=== PATIENT | female | born 2000 | race American Indian/Alaskan Native ===

== ENCOUNTER 2022-01-18 14:50 | Emergency (ER) | payer MEDICAID ==
[2022-01-19] MEDS: HYDROcodone/ACETAMINOPHEN 5-325 MG TAB PO STA (02:04)
--- NOTE | 2022-01-19 02:20 | Emergency Department Report ---
ED General Adult HPI - General Chief complaint: Chest Pain Stated complaint: CP/PRESSURE Time Seen by Provider: 01/19/22 01:36 Source: patient Mode of arrival: Ambulatory Limitations: No Limitations - History of Present Illness Initial comments: 21-year-old female asthma department complaining of 1 week history of pain to her chest just underneath her breasts and a pressure-like fashion worse with palpation and range of motion and deep breath. She reports no coughing, no congestion, no hemoptysis hematemesis hematochezia, no fever, chills, sweats but occasional shortness of breath. -: Gradual Severity scale (0 -10): 8 Quality: aching, dull Consistency: constant Improves with: none Worsens with: none Associated Symptoms: chest pain, shortness of breath. denies: headaches, loss of appetite, malaise, nausea/vomiting, rash, syncope, weakness - Related Data Previous Rx's Medication Instructions Recorded Last Taken Type Ketorolac [Toradol] 10 mg PO Q6H PRN #15 tablet 01/19/22 Unknown Rx methOCARBAMOL [Robaxin TAB] 750 mg PO Q8H PRN #14 tablet 01/19/22 Unknown Rx Allergies Allergy/AdvReac Type Severity Reaction Status Date / Time No Known Allergies Allergy Unverified 01/18/22 16:09 ED Review of Systems ROS: Stated complaint: CP/PRESSURE Other details as noted in HPI Comment: All other systems reviewed and negative ED Past Medical Hx - Medications Home Medications: Home Medications Medication Instructions Recorded Confirmed Last Taken Type Ketorolac [Toradol] 10 mg PO Q6H PRN #15 tablet 01/19/22 Unknown Rx methOCARBAMOL [Robaxin TAB] 750 mg PO Q8H PRN #14 tablet 01/19/22 Unknown Rx ED Physical Exam - General Limitations: No Limitations General appearance: alert, in no apparent distress - Head Head exam: Present: atraumatic, normocephalic - Eye Eye exam: Present: normal appearance - ENT ENT exam: Present: mucous membranes moist - Neck Neck exam: Present: normal inspection - Respiratory Respiratory exam: Present: normal lung sounds bilaterally, chest wall tenderness (Reproducible pain with palpation. And opposed adduction). Absent: respiratory distress - Cardiovascular Cardiovascular Exam: Present: regular rate, normal rhythm. Absent: systolic murmur, diastolic murmur, rubs, gallop - GI/Abdominal GI/Abdominal exam: Present: soft, normal bowel sounds - Extremities Exam Extremities exam: Present: normal inspection - Back Exam Back exam: Present: normal inspection - Neurological Exam Neurological exam: Present: alert, oriented X3 - Psychiatric Psychiatric exam: Present: normal affect, normal mood - Skin Skin exam: Present: warm, dry, intact, normal color. Absent: rash ED Course Vital Signs 01/18/22 16:04 Temperature 98.2 F Pulse Rate 69 Respiratory 18 Rate Blood Pressure 120/83 [Right] O2 Sat by Pulse 100 Oximetry ED Medical Decision Making - Radiology Data Radiology results: report reviewed [facility] [address] [place] [address] XRay Report Signed Patient: BERNY GUERRA MR#: [id number] : 2000 Acct:[id number] Age/Sex: 21 / F ADM Date: 01/18/22 Loc: ED Attending Dr: Ordering Physician: TONI KATZ Date of Service: 01/19/22 Procedure(s): XR chest routine 2V Accession Number(s): [id number] cc: TONI KATZ Fluoro Time In Minutes: XR chest routine 2V INDICATION / CLINICAL INFORMATION: chest pain. COMPARISON: None available. FINDINGS: SUPPORT DEVICES: None. HEART /PULMONARY VASCULATURE: No significant abnormality. LUNGS / PLEURA: No significant pulmonary or pleural abnormality. No pneumothorax. ADDITIONAL FINDINGS: No significant additional findings. IMPRESSION: 1. No acute findings. Signer Name: Elli Mcclellan MD Signed: 01/19/2022 2:15 AM Workstation Name: [id number] Transcribed By: JS Dictated By: ELLI MCCLELLAN MD Electronically Authenticated By: ELLI MCCLELLAN MD Signed Date/Time: 01/19/22214 DD/ 3 TD/TT: - Medical Decision Making This patient presents with chest pain that is very unlikely angina or acute coronary syndrome. The emergency department evaluation has not identified any cause for suspicion that this chest pain has a cardiac etiology. Based on their history, EKG (which showed no evidence of ischemia or infarction) and imaging, in addition to the patient's physical exam, I see no evidence at this time for a malignant etiology for the patient's chest pain. There is no acute evidence for pulmonary embolus, acute myocardial infarction, pneumothorax, Boerhaeve syndrome, cardiac tamponade, thoracic artery dissection, or any other emergent cardiac, pulmonary or aortic pathology. Given the low pre-test probability for c ardiac etiology of chest pain and the absence of any sign of ischemia or infarction, discharge for outpatient follow-up and further evaluation is reasonable. I have explained to the patient that even though a cardiac problem is very unlikely, follow-up and further testing is required to reduce further the already small uncertainty that exists. Other life-threatening diagnoses have been considered. The patient understands the need to return immediately if their symptoms worsen or they develop any new symptoms, and not to engage in any significant exertional activity until follow-up is obtained. Critical care attestation.: If time is entered above; I have spent that time in minutes in the direct care of this critically ill patient, excluding procedure time. ED Disposition Clinical Impression: Chest pain Disposition: 01 HOME / SELF CARE / HOMELESS Is pt being admited?: No Does the pt Need Aspirin: No Condition: Stable Instructions: Nonspecific Chest Pain, Adult, Chest Wall Pain, Costochondritis Prescriptions: methOCARBAMOL [Robaxin TAB] 750 mg PO Q8H PRN #14 tablet PRN Reason: Pain, Moderate (4-6) Ketorolac [Toradol] 10 mg PO Q6H PRN #15 tablet PRN Reason: Pain Referrals: [facility] [Provider Group] - 3-5 Days
[2022-01-19 02:42] VITALS: BP 126/87
--- NOTE | 2022-01-20 09:37 | Electrocardiograph Report ---
[facility] Test Date: 2022-01-18 Test Time: 16:19:05 Pat Name: BERNY GUERRA Department: Room: Gender: F Lead Care Manager: AF : 2000 Requested By: LAILA RAMOS Order Number: [id number] Reading MD: Tyler Milligan Measurements Intervals [place] Rate: 72 P: 46 MO: 144 QRS: 64 QRSD: 91 T: 30 QT: 393 QTc: 432 Interpretive Statements Sinus rhythm No previous ECG available for comparison Electronically Signed On 01-20-2022 9:37:23 EDT by Tyler Milligan
== END 2022-01-19 02:42 | disposition home or self-care (01) ==
LOC: ED 14:50
DX: R07.9 Chest pain, unspecified (principal)
CPT/HCPCS: 71046; 93005; 99283